=== PATIENT | male | born 1975 | race Caucasian/White ===

== ENCOUNTER 2021-10-21 14:32 | Emergency (ER) | payer BC, SELFPAY ==
[2021-10-21 14:38] VITALS: BP 134/69; PULSE 99; RESP 16; TEMP 36.7; O2SAT 98
[2021-10-21 15:00] VITALS: BP 134/69; PULSE 99; RESP 16; TEMP 36.7; O2SAT 98
--- NOTE | 2021-10-21 15:19 | ED.LOWEXIN ---
HPI - Extremity Injury (Lower) General Chief Complaint: Extremity Injury, Lower Stated Complaint: Left Knee Swelling Time Seen by Provider: 10/21/21 15:19 Source: patient and RN notes reviewed Mode of arrival: ambulatory Limitations: no limitations History of Present Illness HPI Narrative: 46-year-old male presents with concern for left knee pain and swelling. Reports he kneeled down on the knee several days ago, noticed subsequent swelling and discomfort. Reports a history of having the joint drained. He reports the knee is slightly warm and red. He denies fever, body aches, chills, sweats. Denies history of gout. MD complaint: knee injury Related Data Allergies Allergy/AdvReac Type Severity Reaction Status Date / Time No Known Drug Allergies Allergy Unknown Other Verified 10/21/21 14:59 Review of Systems Review of Systems: CONSTITUTIONAL: Denies malaise, chills, sweats, or fever. SKIN: Denies rash or itching, open skin, laceration, abrasion MUSCULOSKELETAL: Reports left knee pain and swelling NEUROLOGIC: Denies numbness, weakness All systems reviewed & are unremarkable except as noted in HPI and below PMFSH Comments At time of signature, agree with nursing past medical, surgical, social and family history. There is no relevant family history pertinent to the presenting complaint Exam Narrative: GENERAL: Well-appearing, well-nourished, and in no acute distress. HEAD: Normocephalic, atraumatic. EYES: PERRLA, conjunctivae clear NECK: Supple. CHEST: Speaks in full sentences. No respiratory distress. HEART: Regular rate and rhythm. Normal and equal peripheral pulses. EXTREMITIES: Left knee has normal strength and sensation, grossly normal range of motion. Right anterior edema with mild erythema and warmth, no ecchymosis. Normal sensation with sensitivity to light touch and pain. Mild anterior tenderness. No open wounds, no skin tenting, no devitalized tissue or atrophy, no trophic changes, no obvious deformity, alignment normal, nearby joints and structures intact. Distal pulses palpable and equal bilaterally, skin warm, dry, pink. Capillary refill less than 3 seconds. SKIN: Warm, dry, no rash. NEURO: Alert and oriented x3. PSYCH: Normal mood and affect Course Course Emergency Course: Patient is aware of diagnosis, understands and agrees to treatment plan. Anticipatory guidance given. Patient agrees to follow-up as directed and is aware of reasons to seek care at the emergency department. Portions of this record may have been created with voice recognition software Level of Care: Express Care Visit Vital Signs Vital signs: Vital Signs Temperature 98.1 F 10/21/21 14:38 Pulse Rate 99 10/21/21 14:38 Respiratory Rate 16 10/21/21 14:38 Blood Pressure 134/69 10/21/21 14:38 Pulse Oximetry 98 10/21/21 14:38 Oxygen Delivery Room Air 10/21/21 14:38 Temperature 98.1 F 10/21/21 15:00 Pulse Rate 99 10/21/21 15:00 Respiratory Rate 16 10/21/21 15:00 Blood Pressure 134/69 10/21/21 15:00 Pulse Oximetry 98 10/21/21 15:00 Oxygen Delivery Room Air 10/21/21 15:00 Reviewed. MDM - Extremity Injury (Lower) MDM Narrative Medical decision making narrative: Patients pain is consistent with musculoskeletal etiology. No signs of neurological or vascular compromise on exam. Compartments and tissues are soft without signs of compartment syndrome. Patient denies systemic symptoms consistent with septic arthritis, denies significant pain. Reports mild pain. Pain is felt appropriate for further evaluation on an outpatient basis. Critical Care Time Critical Care Time Critical Care Time: No Discharge Plan Discharge Clinical Impression: Knee swelling Patient Disposition: Home, Self-Care Condition: Stable Instructions: Swollen Knee Joint (ED) Additional Instructions: Avoid activities that cause pain until the pain subsides. Ice to the area 20-30 minutes 4-6 times a day [facility]vat
== END 2021-10-21 15:39 | disposition home or self-care (01) ==
PROVIDERS: Emergency Provider Nurse Practitioner
DX: M25.462 Effusion, left knee (principal)
CPT/HCPCS: 99203; G0463